=== PATIENT | female | born 1975 | race Two or more races ===

== ENCOUNTER 2018-04-15 17:29 | Emergency (ER) | payer OTHER ==
[~2018-04-15] VITALS: Ht 167.6 cm; Wt 128.4 kg
[2018-04-15 19:16] LABS: Albumin 3.5 g/dL (3.4-5.0); BUN/Creatinine Ratio 20.9; Calcium 8.7 mg/dL (8.5-10.1); Potassium 3.7 mmol/L (3.5-5.1)
[2018-04-15 19:19] LABS: Bilirubin, Total 0.3 mg/dL (0.2-1.0); Total Protein 7.6 g/dL (6.4-8.2)
[2018-04-15 19:34] LABS: Basophils # (auto) 0.1 uL; Basophils % (auto) 0.6 % (0.0-2.0); Eosinophils # (auto) 0.2 uL; Eosinophils % (auto) 1.6 % (0.0-7.0); Hematocrit 42.6 % (36.0-46.0); Hemoglobin 14.4 g/dL (12.2-16.2); Lymphocytes # (auto) 4.1 uL; Lymphocytes % (auto) 38.3 % (10.0-50.0); Mean Corpuscular Hemoglobin 28.6 pg (28.0-32.0); Mean Corpuscular Hgb Conc. 33.7 g/dL (32.0-36.0); Mean Corpuscular Volume 84.7 fL (80.0-100.0); Monocytes # (auto) 0.7 uL; Monocytes % (auto) 6.1 % (0.0-12.0); Neutrophils # (auto) 5.7 uL; Neutrophils % (auto) 53.4 % (37.0-80.0); Nucleated Red Blood Cells % 0.2 %; Platelet Count (auto) 338 10^3/uL (140-450); Red Blood Cells 5.03 10^6/uL (4.0-5.20); Red Cell Distribution Width 13.3 % (11.8-14.3); White Blood Cell 10.7 10^3/uL (4.4-10.8)
[2018-04-15 20:08] LABS: Urine Bacteria NONE SEEN /hpf (None Seen); Urine Blood 1+ /uL (Negative); Urine Specific Gravity 1.043 (1.001-1.035); Urine WBC 2 /hpf (0 - 5)
[2018-04-16] MEDS ORDERED: InsuLIN REG 1unit/0.01ml Soln (100units/ml) IV ONE (01:45)
[2018-04-16 03:54] VITALS: BP 125/87
== END 2018-04-16 04:07 | disposition home or self-care (01) ==
LOC: ER 17:29
DX: E11.65 Type 2 diabetes mellitus with hyperglycemia (principal)
CPT/HCPCS: 36415; 80053; 81001; 82962; 85025; 93005; 96374; 99285; J1815

== ENCOUNTER 2025-05-10 05:35 | Emergency (ER) | payer MEDICAID, OTHER ==
[~2025-05-10] VITALS: Ht 168.9 cm; Wt 106.0 kg
[2025-05-10 05:37] VITALS: BP_DIAS 81
--- NOTE | 2025-05-10 06:41 | ED.PDOC ---
History of Present Illness HPI Comments 49-year-old female presents to the ER in a wheelchair and being pushed by spouse with prior medical history of diabetes and a chief complaint of lower extremity. Patient reports on having a skin graft done on her left ankle Sunday of 05/08/2025, and was informed the if the wound VAC beeps to go to the ER. Patient states that the BP started this morning and feels that the wound VAC is not suctioning. Denies chills, fever, N/V/D, SOB, CP. No other associated symptoms, modifiers, recent injuries or sick contacts present at this time. Chief Complaint: Lower Extremity Time Seen by MD: 06:40 Reviewed Notes: Nurses Notes, Medications, Allergies Allergies: Coded Allergies: No Known Drug Allergy (Verified Allergy, Unknown, 04/15/18) Information Source: Patient Mode of Arrival: Wheelchair Severity: Moderate Timing: Hours Duration: Since onset, Hours Prehospital treatment: None Past Medical History PAST MEDICAL HISTORY: DM Surgical History: Denies all surgeries DIRECTOR OF SECURITY History: No Pertinent DIRECTOR OF SECURITY History Family History Family History: Reviewed,noncontributory to illness, Unknown Social History Smoker: Non-Smoker Alcohol: Denies ETOH Use Drugs: Denies Drug Use Lives In: Home Constitutional: denies: chills, diaphoresis, fatigue, fever, malaise, sweats, weakness, others EENTM: denies: blurred vision, double vision, ear bleeding, ear discharge, ear drainage, ear pain, ear ringing, eye pain, eye redness, hearing loss, mouth pain, mouth swelling, nasal discharge, nose bleeding, nose congestion, nose pain, photophobia, tearing, throat pain, throat swelling, voice changes, others Respiratory: denies: cough, hemoptysis, orthopnea, SOB at rest, shortness of breath, SOB with excertion, stridor, wheezing, others Cardiovascular: denies: chest pain, dizzy spells, diaphoresis, Dyspnea on exertion, edema, irregular heart beat, left arm pain, lightheadedness, palpitations, PND, syncope, others Gastrointestinal: denies: abdomen distended, abdominal pain, blood streaked bowels, constipated, diarrhea, dysphagia, difficulty swallowing, hematemesis, melena, nausea, poor appetite, poor fluid intake, rectal bleeding, rectal pain, vomiting, others Genitourinary: denies: abnormal vagina bleeding, burning, dyspareunia, dysuria, flank pain, frequency, hematuria, incontinence, pain, , vagina discharge, urgency, others Neurological: denies: dizziness, fainting, headache, left sided numbness, left sided weakness, numbness, paresthesia, pre-existing deficit, right sided numbness, right sided weakness, seizure, speech problems, tingling, tremors, weakness, others Musculoskeletal: denies: back pain, gout, joint pain, joint swelling, muscle pain, muscle stiffness, neck pain, others Integumetry: reports: wounds (post-op wound left foot); denies: bruises, change in color, change in hair/nails, dryness, laceration, lesions, lumps, rash, othe rs Allergic/Immunocompromised: denies: Difficulty Healing, Frequent Infections, Hives, Itching, others Hematologic/Lymphatic: denies: anemia, blood clots, easy bleeding, easy bruising, swollen glands, others Endocrine: denies: excessive hunger, excessive sweating, excessive thirst, excessive urination, flushing, intolerance to cold, intolerance to heat, unexplained weight gain, unexplained weight loss, others Psychiatric: denies: anxiety, bipolar disorder, depression, hopeless, panic disorder, schizophrenia, sleepless, suicidal, others All Other Systems: Reviewed and Negative Physical Exam General Appearance: No Apparent Distress, Normal HEENT: Normal ENT Inspection, Pharynx Normal, TMs Normal Neck: Full Range of Motion, Non-Tender, Normal, Normal Inspection Respiratory: Chest Non-Tender, Lungs Clear, No Accessory Muscle Use, No Respiratory Distress, Normal Breath Sounds Cardiovascular: No Edema, No JVD, No Murmur, No Gallop, Normal Peripheral Pulses, Regular Rate/Rhythm Breast Exam: Deferred Gastrointestinal: No Organomegaly, Non Tender, No Pulsatile Mass, Normal Bowel Sounds, Soft Genitalia: Deferred Pelvic: Deferred Rectal: Deferred Extremities: No calf tenderness, Normal capillary refill, Normal inspection, Normal range of motion, Non-tender, No pedal edema Musculoskeletal : Apperance: Normal Neurologic: Alert, solar sales II-XII nml as Tested, No Motor Deficits, Normal Affect, Normal Mood, No Sensory Deficits Cerebellar Function: Normal Reflexes: Normal Skin: Dry, Normal Color, Warm, Wounds (Left foot wrapped in wound vac with drainage tube present, no odor, no swelling) Lymphatic: No Adenopathy Was a procedure done? Was a procedure done?: No Differential Dx Considerations may include: Malfunction of wound drainage machine X-Ray, Labs, Meds, VS Vital Signs Date Time Temp Pulse Resp B/P (MAP) Pulse Ox O2 Delivery O2 Flow Rate FiO2 05/10/25 05:37 97.9 85 18 136/81 96 97.9 X-Ray, Labs, Meds, VS Comment Patient seen examined by me. Patient presented with wound VAC possibly not functioning this morning as she feels no suction on her dressing. Dressing re- evaluated. Patient did notice a small amount of suction occurring. Two gary were also removed from the graft site. No signs of infection. Patient has follow-up with wound care nurse on Sunday. Time of 1ST Reevaluation: 07:10 Reevaluation 1ST: Unchanged Reevaluation 2ND: Improved Patient Education/Counseling: Diagnosis, Treatment, Prognosis Family Education/Counseling: Diagnosis, Treatment, Need For Follow Up SEPSIS Sepsis Screen Date sepsis recognized/suspect: May 10, 2025 Time Sepsis recognized/suspect: 0542 Recent Procedure: Yes On Antibiotic Therapy: No Respiratory Rate >20: No Heart Rate >90: No Temp<36 C (96.8 F) or >38.3 C: No SBP <90 or MAP <65 mmHG: No New Acute Mental Status Change: No Is the patient on CPAP, BIPAP,: No Vital Signs Date Time Temp Pulse Resp B/P (MAP) Pulse Ox O2 Delivery O2 Flow Rate FiO2 05/10/25 05:37 97.9 85 18 136/81 96 97.9 Departure 1 Departure Time of Disposition: 07:16 Impression: Primary Impression: Visit for wound check Disposition: 01 HOME / SELF CARE / HOMELESS Condition: Good Additional Instructions: Follow-up with Wound Care Center on care of your wound VAC. do not make any changes until that time.. Discharged With: Spouse Critical Care Note Critical Care Time?: No Stability Stability form required: No I personally scribed for ER ([email or web address]) on 05/10/25 at 06:40. Electronically submitted by Frank Alvarado ([email or web address]). 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
[2025-05-10 07:21] VITALS: BP_SYST 134; PULSE 78; RESP 18; TEMP 98.9; O2SAT 98
== END 2025-05-10 07:23 | disposition home or self-care (01) ==
LOC: ER 05:49
DX: S90.922D Unspecified superficial injury of left foot, subsequent encounter (principal); Z48.00 Encounter for change or removal of nonsurgical wound dressing; E11.9 Type 2 diabetes mellitus without complications; X58.XXXD Exposure to other specified factors, subsequent encounter

== ENCOUNTER 2025-07-09 20:44 | Emergency (ER) | payer MEDICAID ==
[~2025-07-09] VITALS: Ht 167.6 cm; Wt 111.8 kg
--- NOTE | 2025-07-09 22:00 | ED.PDOC ---
History of Present Illness(SKN HPI Comments 49-YEAR-OLD FEMALE PRESENTS TO THE ED CHIEF COMPLAINT RIGHT GREAT TOE WOUND. PATIENT REPORTS HISTORY OF DIABETES CURRENTLY ON INSULIN FOR CONTROL STATES LAST BLOOD SUGAR FASTING WAS 117 CURRENTLY ON SLIDING SCALE. PATIENT STATES THE OTHER DAY SHE PEELED OFF A BLISTER ON HER RIGHT GREAT TOE AND NOW NOTES DRAINAGE REDNESS SWELLING AND PAIN. DENIES ANY NUMBNESS OR WEAKNESS NOTES NO KNOWN INJURY REPORTS NO FEVERS OR CHILLS DENIES NAUSEA OR VOMITING. Chief Complaint: Lower Extremity Time Seen by MD: 20:54 History of Present Illness: Nurses Notes, Medications, Allergies Allergies: Coded Allergies: No Known Drug Allergy (Verified Allergy, Unknown, 04/15/18) Home Meds Active Scripts Doxycycline Hyclate (Doxycycline Hyclate) 100 Mg Cap, 100 MG PO BID for 10 Days, #20 CAP Prov:NAYEMATILDA 07/09/25 Information Source: Patient Mode of Arrival: Ambulatory Past Medical History PAST MEDICAL HISTORY: DM Surgical History: Denies all surgeries ANATOMIC PATHOLOGIST History: No Pertinent ANATOMIC PATHOLOGIST History Family History Family History: Reviewed,noncontributory to illness, Unknown Social History Smoker: Non-Smoker Alcohol: Denies ETOH Use Drugs: Denies Drug Use Lives In: Home All Other Systems: Reviewed and Negative (SEE HPI) Physical Exam General Appearance: No Apparent Distress, Normal HEENT: Pharynx Normal Neck: Full Range of Motion, Non-Tender Respiratory: Lungs Clear, No Respiratory Distress, Normal Breath Sounds Cardiovascular: No Murmur, Normal Peripheral Pulses, Regular Rate/Rhythm Breast Exam: Deferred Gastrointestinal: No Organomegaly, Non Tender, Soft Genitalia: Deferred Pelvic: Deferred Rectal: Deferred Extremities: No calf tenderness, Normal capillary refill, Normal range of motion, Non-tender, No pedal edema Musculoskeletal : Apperance: Normal Neurologic: Alert, No Motor Deficits, Normal Affect, Normal Mood, No Sensory Deficits Cerebellar Function: Normal Reflexes: Normal Skin: Dry, Normal Color, Warm, Wounds (RIGHT FOOT 1ST DIGIT PALMAR ASPECT NOTED ABRASION WITH ERYTHEMA NO NOTED DRAINAGE POSITIVE EDEMA CAP REFILL LESS THAN 3 SECONDS STRENGTH SENSORY MOTION INTACT.) Lymphatic: No Adenopathy Was a procedure done? Was a procedure done?: No Differential Diagnosis (INTG) Differential Diagnosis: Cellulitis Differential Diagnosis: Abscess X-Ray, Labs, Meds, VS Vital Signs Date Time Temp Pulse Resp B/P (MAP) Pulse Ox O2 Delivery O2 Flow Rate FiO2 07/09/25 20:46 98.0 97 18 140/106 98 98.0 X-Ray, Labs, Meds, VS Comment Patient given Rocephin 1 g IM. Script trial of doxycycline twice daily times 10 days. Advised to monitor her blood sugars closely. Follow up two days with her PCP urgent care or back here for wound re-evaluation. ER return precautions in patient indicated understanding agrees with discharge plan of care. Time of 1ST Reevaluation: 21:30 Reevaluation 1ST: Unchanged Time of 2ND Reevaluation: 22:05 Reevaluation 2ND: Improved Patient Education/Counseling: Diagnosis, Treatment, Need For Follow Up Family Education/Counseling: No Family Present SEPSIS Sepsis Screen Date sepsis recognized/suspect: Jul 09, 2025 Time Sepsis recognized/suspect: 2048 Recent Procedure: No On Antibiotic Therapy: No Respiratory Rate >20: No Heart Rate >90: No Temp<36 C (96.8 F) or >38.3 C: No SBP <90 or MAP <65 mmHG: No New Acute Mental Status Change: No Is the patient on CPAP, BIPAP,: No Physician Orders Lidocaine 1% (Local Anesth.) (Xylocaine (07/09/25 22:15) Vital Signs Date Time Temp Pulse Resp B/P (MAP) Pulse Ox O2 Delivery O2 Flow Rate FiO2 07/09/25 20:46 98.0 97 18 140/106 98 98.0 Departure 1 Departure Time of Disposition: 22:05 Impression: Primary Impression: Toe infection Disposition: HOME / SELF CARE / HOMELESS Condition: Stable e-Prescriptions Doxycycline Hyclate (Doxycycline Hyclate) 100 Mg Cap 100 MG PO BID for 10 Days, #20 CAP Prov: MATILDA YANCEY 07/09/25 Discharged With: Self Critical Care Note Critical Care Time?: No Stability Stability form required: MATILDA Aranda Jul 09, 2025 22:00
[2025-07-09] MEDS ORDERED: DOXY100C4 PO (22:03)
[2025-07-09] MEDS: cefTRIAXone SOD 1,000 MG VL IM ONE (22:12)
[2025-07-09] MEDS: LIDOCAINE 1% HCL (LOCAL ANESTH.) INJ 20ML MDV ID ONE (22:12)
[2025-07-09 22:27] VITALS: BP 140/106; PULSE 97; RESP 18; TEMP 98; O2SAT 98
== END 2025-07-09 22:29 | disposition home or self-care (01) ==
LOC: ER 20:47
DX: S90.411A Abrasion, right great toe, initial encounter (principal); L08.9 Local infection of the skin and subcutaneous tissue, unspecified; E11.9 Type 2 diabetes mellitus without complications; Z79.4 Long term (current) use of insulin; Z79.899 Other long term (current) drug therapy; X58.XXXA Exposure to other specified factors, initial encounter; Y93.89 Activity, other specified; Y92.89 Other specified places as the place of occurrence of the external cause; Y99.8 Other external cause status
CPT/HCPCS: 96372; 99283; J0696; J2003